=== PATIENT | male | born 1980 | race Caucasian/White ===

== ENCOUNTER 2022-02-21 21:01 | Emergency (ER) | payer OTHER, SELFPAY ==
--- NOTE | ~2022-02-21 | CT_ITS ---
EXAMINATION: CT brain wo con DATE: 02/21/2022 21:16 INDICATION: fall . TECHNIQUE: Computed tomography (CT) of the head was performed without intravenous contrast. The mA wa s adjusted according to patient size. Iterative reconstruction technique was employed. The dose-lengt h product was 1059.33 mGy-cm. COMPARISON: None. FINDINGS: Motion artifact present which required repeat imaging. No acute intracranial hemorrhage or extra-axial fluid collection. No hydrocephalus, mass, or herniation. No acute ischemic infarct. Unremarkable dural venous sinus attenuation. No acute osseous abnormality. Left frontal swelling and laceration. Right maxillary mucosal thickening, the remaining aerated spaces are clear. IMPRESSION: No acute intracranial process. Reviewed, dictated and finalized at location K. ING SUPERVISOR
--- NOTE | ~2022-02-21 | CT_ITS ---
EXAMINATION: CT facial & cervical spine wo DATE: 02/21/2022 21:19 INDICATION: fall TECHNIQUE: Computed tomography (CT) of the maxillofacial region and cervical spine was performed with out intravenous contrast. Automated exposure control and iterative reconstruction technique were empl oyed. The dose-length product was 558.43 mGy-cm. COMPARISON: CT brain, same date FINDINGS: CERVICAL: Vertebral Body Alignment: Intact. Craniocervical and atlantoaxial alignment: Moderate degenerative change. Alignment intact. Osseous structures/fracture: No evidence of a lytic or blastic process in the visualized spine. No e vidence of acute fracture. Cervical soft tissues: The paraspinal soft tissues planes are maintained. Degenerative changes: Moderate degenerative disc disease at C5-6. Severe right neural foraminal narro wing at C5-6. No severe central canal narrowing. FACE: Soft Tissues: Left frontal soft tissue swelling and laceration. Facial bones: Mild flattening of the anterior nasal bones. Otherwise, no acute fracture. No lytic or blastic process. Eyes: The globes are intact. The soft tissue planes of the orbits are maintained. Paranasal Sinuses: Mild inferior frontal and anterior ethmoid mucosal thickening. Moderate mucosal t hickening in the right maxillary sinus. Foreign Bodies: No radiopaque foreign bodies. Other Findings: Periapical lucency at the right first maxillary molar, which may be in communication with the right maxillary sinus. IMPRESSION: No acute fracture or traumatic malalignment in the cervical spine. Mild flattening of the anterior na denis bones which may represent acute or chronic fracture. Right maxillary periodontal disease, with po ssible right maxillary sinus involvement. Consider dental referral. Reviewed, dictated and finalized at location K. CE ASSISTANT IMPRESSION: No acute fracture or traumatic malalignment in the cervical spine. Mild flatten ing of the anterior nasal bones which may represent acute or chronic fracture. Right maxillary periodontal disease, with possible right maxillary sinus involv ement. Consider dental referral.
[2022-02-21 20:54] VITALS: BP 161/104; PULSE 81; RESP 16; TEMP 37.3; O2SAT 99
--- NOTE | 2022-02-21 21:01 | ED.WOUNDLAC ---
HPI - Wound/Laceration General Chief Complaint: Wound/Laceration Stated Complaint: LEFT EYE LAC, ETOH+ Source: patient and EMS Mode of arrival: EMS Limitations: no limitations History of Present Illness HPI narrative: 42 years old white male brought to the emergency room from home by ambulance because of a fall with laceration of left eyebrow Prior to arrival. Patient's told the EMT that patient been drinking all day long 4 days, and somehow lost his balance and fell, hit the edge of a wall then fell to the ground. Patient was mumbling, probably because of alcohol intoxication or probably because of the fall. Patient's is not sure. Patient is awake, alert and oriented x4, asymptomatic Related Data Allergies Allergy/AdvReac Type Severity Reaction Status Date / Time No Known Allergies Allergy Verified 02/21/22 21:05 Review of Systems Review of Systems: All systems reviewed & are unremarkable except as noted in HPI and below Exam Narrative: General appearance: Well-developed, well-nourished Skin: Normal color, 3 centimeter laceration left eyebrow, subcutaneous, patient is able to contract and relax the frontalis muscle without any abnormality Head: Normocephalic, nontraumatic Eyes: Clear conjunctiva ENT: Oropharynx normal, ears normal, nose normal Neck: Supple, nontender Chest and respiratory: Airway patent, no respiratory distress, no accessory muscle use Heart: Regular rate/rhythm Abdomen: Soft, nontender, no organomegaly, quiet bowel sounds Vascular: Normal peripheral pulses, normal capillary refill. Musculoskeletal: Normal range of motion, nontender back Neurologic: Alert and oriented ?3, FORM LAYER is normal as tested, no gross motor deficit Course Vital Signs Vital signs: Vital Signs Temperature 37.3 C 02/21/22 20:54 Pulse Rate 81 02/21/22 20:54 Respiratory Rate 16 02/21/22 20:54 Blood Pressure 161/104 H 02/21/22 20:54 Pulse Oximetry 99 02/21/22 20:54 Oxygen Delivery Room Air 02/21/22 20:54 Temperature 37.3 C 02/21/22 20:54 Pulse Rate 81 02/21/22 20:54 Respiratory Rate 16 02/21/22 20:54 Blood Pressure 161/104 H 02/21/22 20:54 Pulse Oximetry 99 02/21/22 20:54 Oxygen Delivery Room Air 01/16/23 20:54 MDM - Wound/Laceration MDM Narrative Medical decision making narrative: Patient is 42 years old white male came to the emergency room by ambulance from home after a fall against the edge of a wall at home causing laceration of left eyebrow. Patient is intoxicated. On arrival to the ED, patient is awake, alert and oriented x4, Physical examination showed no significant abnormality except left eyebrow laceration, subcutaneous, patient was able to contract and relax his frontalis muscle without any abnormality. Labs, alcohol level, CT head, cervical spine and facial bones ordered. Blood work-up showed alcohol level of 365. CT scan of the head, facial bones and cervical spine showed No acute fracture or traumatic malalignment in the cervical spine, mild flattening of the anterior nasal bones which may represent acute or chronic fracture. Right maxillary peridental disease with possible right maxillary sinus involvement. Physical examination showed no abnormality on the right side of the face. The above findings is chronic and patient needs to follow-up with a dentist for further evaluation and management. Laceration was repaired by Maureen/our physician academic affairs assistant. The pt was discharged to home.the pt,s condition upon discharge was fair,education was provided to the pt in reference to the final impression,discharge study results,treatment,prognosis and need for follow up . Lab Data 02/21/22 21:28
--- NOTE | 2022-02-21 21:11 | PC.NURSE ---
Pt to Ct via stretcher
[2022-02-21] MEDS: SODIUM CHLORIDE 0.9% IV 1,000 ML 999 ML IV CONT (21:27)
[2022-02-21] MEDS: TETANUS,DIPHTHERIA,AC PERTUSSIS ADULT (0.5 ML) BOOSTRIX IM (21:31)
[2022-02-21 21:33] LABS: Basophils Absolute Auto 0.1 K/mm3 (0.0-0.1); Basophils Percent Auto 1.1 % (0.2-1.2); Eosinophils Absolute Auto 0.2 K/mm3 (0-0.3); Eosinophils Percent Auto 2.8 % (0-4.4); Hemoglobin 17.1 g/dL (14.0-18.0); Immature Granulocyte Absolute 0.02 K/mm3 (0.00-0.031); Immature Granulocyte Percent A 0.3 % (0-0.5); Lymphocytes Absolute Auto 2.73 K/mm3 (0.9-3.2); Lymphocytes Percent Auto 38.6 % (18.3-44.2); Mean Corpuscular HGB Conc 34.9 g/dl (32-36); Mean Corpuscular Hemoglobin 34.3 pg (26-34); Mean Corpuscular Volume 98.2 fl (80-100); Mean Platelet Volume 8.8 fl (7.4-10.4); Monocytes Absolute Auto 0.5 K/mm3 (0.1-0.6); Monocytes Percent Auto 7.5 % (2.6-8.5); Neutrophils Absolute Auto 3.5 K/mm3 (1.3-6.7); Neutrophils Percent Auto 49.7 % (45.5-73.1); Platelet Count Result 229 k/mm3 (150-375); Red Blood Count 4.99 M/mm3 (4.6-6.20); Red Cell Distribution Width 11.9 % (11.5-14.5); White Blood Count 7.1 K/mm3 (4.5-10.0)
[2022-02-21 21:44] LABS: Prothrombin Time 12.8 Seconds (11.1-14.7)
[2022-02-21 21:48] LABS: Alanine Aminotransferase 26 U/L (6-50); Albumin Level 4.8 g/dL (3.5-5.1); Alkaline Phosphatase 55 U/L (38-126); Anion Gap 11 mmol/L (8-16); Aspartate Amino Transferase 41 U/L (17-59); Bilirubin,Total 0.5 mg/dL (0.2-1.3); Blood Urea Nitrogen 11 mg/dL (9-20); Calcium 8.2 mg/dL (8.4-10.2); Carbon Dioxide 26 mmol/L (22-30); Chloride 105 mmol/L (98-107); Estimated CRCL calculation 90 ml/min; Estimated Glomerular Filt Rate > 60; Glucose 137 mg/dL (65-110); Potassium 3.9 mmol/L (3.4-5.0); Sodium 142 mmol/L (137-145)
[2022-02-21 22:06] LABS: Ethanol 365 mg/dL (<10)
[2022-02-21] MEDS: CEPHALEXIN 500 MG CAPSULE PO (22:57)
== END 2022-02-21 23:09 | disposition home or self-care (01) ==
PROVIDERS: Emergency Provider Emergency Medicine
DX: S01.112A Laceration without foreign body of left eyelid and periocular area, initial encounter (principal); Z23 Encounter for immunization; K05.6 Periodontal disease, unspecified; F10.129 Alcohol abuse with intoxication, unspecified; Y90.8 Blood alcohol level of 240 mg/100 ml or more; W18.09XA Striking against other object with subsequent fall, initial encounter
CPT/HCPCS: 12013; 36415; 70450; 70486; 72125; 80053; 80307; 85025; 85610; 90471; 90715; 96360; 99284; A9270; J7030

== ENCOUNTER 2024-01-22 12:39 | Emergency (ER) | payer OTHER, SELFPAY ==
[2024-01-22 12:40] VITALS: BP 162/103; PULSE 97; RESP 16; TEMP 37.7; O2SAT 99
--- NOTE | 2024-01-22 13:22 | PC.NURSE ---
Pt explains recent divorce, placed on escitalopram for the past two months which he states has been helping a little. Denies hx of SI/HI or psych tx. Pt reports what he describes as paranoia, concern for his life from family members. Pt denies SI/HI currently.
[2024-01-22 14:07] LABS: Add Urine Microscopic? YES; Appearance Urine Clear (Clear); Bacteria Urine None Seen /hpf; Bilirubin Urine Negative (Negative); Blood Urine Negative (Negative); Color Urine Dark Yellow (Yellow); Glucose Urine UA Negative (Negative); Ketones Urine 1+ mg/dL (Negative); Leukocyte Esterase Ur Negative LEU/UL (Negative); Nitrate Urine Negative (Negative); Protein Urine Trace mg/dL (Negative); RBC Urine 0-2 /hpf (0-2); Specific Grav Ur 1.021 (1.001-1.035); Squamous Epithelial Cell Urine None Seen /hpf (Few); WBC Urine 0-5 /hpf (0-3); pH Urine 5.5 (5.0-9.0)
[2024-01-22 14:19] LABS: Amphetamine Screen Urine Negative (Negative); Barbiturate Screen Urine Negative (Negative); Benzodiazepines Screen Urine Negative (Negative); Cannabinoid Screen Urine Positive (Negative); Cocaine Screen Urine Negative (Negative); Methadone Screen Urine Negative (Negative); Opiate Screen Urine Negative (Negative); Phencyclidine Screen Urine Negative (Negative)
[2024-01-22 14:34] LABS: Basophils Absolute Auto 0.1 K/mm3 (0.0-0.1); Basophils Percent Auto 0.7 % (0.2-1.2); Eosinophils Absolute Auto 0.1 K/mm3 (0-0.3); Eosinophils Percent Auto 1.7 % (0-4.4); Hematocrit 47.2 % (42.0-52.0); Immature Granulocyte Absolute 0.02 K/mm3 (0.00-0.031); Immature Granulocyte Percent A 0.3 % (0-0.5); Lymphocytes Percent Auto 23.7 % (18.3-44.2); Mean Corpuscular Hemoglobin 33.1 pg (26-34); Mean Platelet Volume 8.9 fl (7.4-10.4); Monocytes Absolute Auto 0.8 K/mm3 (0.1-0.6); Monocytes Percent Auto 10.4 % (2.6-8.5); Neutrophils Absolute Auto 4.8 K/mm3 (1.3-6.7); Neutrophils Percent Auto 63.2 % (45.5-73.1); Platelet Count Result 231 k/mm3 (150-375); Red Blood Count 5.13 M/mm3 (4.6-6.20); Red Cell Distribution Width 11.8 % (11.5-14.5); White Blood Count 7.6 K/mm3 (4.5-10.0)
[2024-01-22 14:45] LABS: Alanine Aminotransferase 24 U/L (6-50); Albumin Level 5.2 g/dL (3.5-5.1); Alkaline Phosphatase 46 U/L (38-126); Anion Gap 6 mmol/L (4-12); Aspartate Amino Transferase 38 U/L (17-59); Bilirubin,Total 2.3 mg/dL (0.2-1.3); Blood Urea Nitrogen 9 mg/dL (9-20); Calcium 9.3 mg/dL (8.4-10.2); Carbon Dioxide 30 mmol/L (22-30); Chloride 102 mmol/L (98-107); Estimated CRCL calculation 104 ml/min; Estimated Glomerular Filt Rate > 60; Glucose 97 mg/dL (65-110); Potassium 3.8 mmol/L (3.4-5.0); Sodium 138 mmol/L (137-145)
[2024-01-22 14:48] LABS: Ethanol < 10 mg/dL (<10)
[2024-01-22 15:10] LABS: SARS-CoV-2 RNA PCR Negative (Negative)
[2024-01-22 15:36] LABS: Thyroid Stimulating Hormone Reflex 0.963 uIU/mL (0.465-4.68)
--- NOTE | 2024-01-22 17:01 | ED.PSYCH ---
HPI - Psych General Chief Complaint: Psychiatric Symptoms Stated Complaint: psych evaluation, paranoia, S/I Time Seen by Provider: 01/22/24 13:18 History of Present Illness HPI Narrative: Patient is a 44-year-old male who presents ER with increased paranoia a a and possible suicidal ideation. Patient last night called please to his house because he reports my is hacking his phone. He has lost his phone contacts. He also had a backup text message scheduled to be sent that accidentally got sent. Daughter present. The text stated ?it is important and perhaps my last words. You guys get half my pension. I love you also much, and I am sorry. Patient is going through stressors from a recent divorce. No previous history of psychosis. Denies drug or alcohol use. Patient also reports that he is confronted family about things that occurred between a family member and his . Patient is evasive in vague when speaking. Related Data Allergies Allergy/AdvReac Type Severity Reaction Status Date / Time No Known Allergies Allergy Verified 01/22/24 12:41 Review of Systems Review of Systems: All systems reviewed & are unremarkable except as noted in HPI and below Constitutional: Constitutional: Reports no additional constitutional complaints Cardiovascular: Cardiovascular: Reports no additional cardiovascular complaints Respiratory: Respiratory: Reports no additional respiratory complaints Musculoskeletal: Musculoskeletal: Reports no additional musculoskeletal complaints Integumentary/Breasts: Skin/Breast: Reports system reviewed and no additional complaints, except as docu Psychiatric: Psychiatric: Reports depression, Denies homicidal ideation and Reports suicidal ideation Comments: paranoia that he is being hacked PMFSH Past Medical History Medical History (Updated 01/22/24 @ 21:59 by Vinh Coley MD) Depression, major, single episode, moderate Essential (primary) hypertension Family History Family History (Updated 11/02/23 @ 06:12 by Leland Garcia MD) Mother Breast cancer Hypertension Sibling Hypertension Sibling Hypertension Social History Social History Smoking status: Never smoker Substance use type: marijuana Exam Narrative: GENERAL: Well-appearing, well-nourished, and in no acute distress. HEAD: Normocephalic, atraumatic. ENT: Mucous membranes moist. CHEST: Clear to auscultation. No respiratory distress. HEART: Regular rate and rhythm. Normal peripheral pulses. ABDOMEN: Soft, nontender, nondistended. EXTREMITIES: Normal range of motion. No edema. SKIN: Warm, dry, no rash. NEURO: Alert and oriented x3. PSYCH: Seems paranoid and invades drip questions. Reports broad statements of suicidal ideation the past denies specific plan. Course Course Emergency Course: 1709: Patient is medically cleared for inpatient psychiatric hospitalization. Crisis has been up see the patient. I do think that he has some paranoia and after interacting with his daughter it appears he has made statements consistent with suicidal ideation through text message. Recommend involuntary admission. 2157: Patient has a bed, awaiting transport in the morning. CARROL to Dr. Harris. Vital Signs Vital signs: Vital Signs Temperature 99.9 F H 01/22/24 12:40 Pulse Rate 97 01/22/24 12:40 Respiratory Rate 16 01/22/24 12:40 Blood Pressure 162/103 H 01/22/24 12:40 Pulse Oximetry 99 01/22/24 12:40 Oxygen Delivery Room Air 01/22/24 12:40 Temperature 98 F 01/22/24 18:10 Pulse Rate 75 01/22/24 18:10 Respiratory Rate 18 01/22/24 18:10 Blood Pressure 170/103 H 01/22/24 18:10 Pulse Oximetry 100 01/22/24 18:10 Oxygen Delivery Room Air 01/22/24 12:40 MDM - Psych Lab Data 01/22/24 14:25 01/22/24 14:25 Labs: Lab Results 01/22/24 01/22/24 Range/Units 13:49 14:25 WBC 7.6 (4.5-10.0) K/mm3 RBC 5.13 (4.6-6.20) M/mm3 Hgb 17.0 (14.0-18.0) g/dL Hct 47.2 (42.0-52.0) % MCV 92.0 (80-100) fl MCH 33.1 (26-34) pg MCHC 36.0 (32-36) g/dl RDW 11.8 (11.5-14.5) % Plt Count 231 (150-375) k/mm3 MPV 8.9 (7.4-10.4) fl Immature Gran % (Auto) 0.3 (0-0.5) % Neut % (Auto) 63.2 (45.5-73.1) % Lymph % (Auto) 23.7 (18.3-44.2) % [place] % (Auto) 10.4 H (2.6-8.5) % Eos % (Auto) 1.7 (0-4.4) % Baso % (Auto) 0.7 (0.2-1.2) % Lymph # (Auto) 1.80 (0.9-3.2) K/mm3 [place] # (Auto) 0.8 H (0.1-0.6) K/mm3 Eos # (Auto) 0.1 (0-0.3) K/mm3 Baso # (Auto) 0.1 (0.0-0.1) K/mm3 Abs Immat Gran (auto) 0.02 (0.00-0.031) K/mm3 Absolute Neuts (auto) 4.8 (1.3-6.7) K/mm3 Absolute Nucleated RBC 0.000 (0.0-0.012) K/mm3 Nucleated RBC % 0.0 (0.0-0.2) % Sodium 138 (137-145) mmol/L Potassium 3.8 (3.4-5.0) mmol/L Chloride 102 (98-107) mmol/L Carbon Dioxide 30 (22-30) mmol/L Anion Gap 6 (4-12) mmol/L BUN 9 (9-20) mg/dL Creatinine 0.90 (0.7-1.3) mg/dL Estim Creat Clear Calc 104 ml/min Estimated GFR > 60 (59 - ) Glucose 97 (65-110) mg/dL Calcium 9.3 (8.4-10.2) mg/dL Total Bilirubin 2.3 H (0.2-1.3) mg/dL AST 38 (17-59) U/L ALT 24 (6-50) U/L Alkaline Phosphatase 46 (38-126) U/L Total Protein 9.0 H (6.3-8.2) g/dL Albumin 5.2 H (3.5-5.1) g/dL TSH (Reflex) 0.963 (0.465-4.68) uIU/mL Urine Color Dark yellow (Yellow) Urine Appearance Clear (Clear) Urine pH 5.5 (5.0-9.0) Ur Specific [place] 1.021 (1.001-1.035) Urine Protein Trace (Negative) mg/dL Urine Glucose (UA) Negative (Negative) mg/dL Urine Ketones 1+ H (Negative) mg/dL Ur Blood (Man) Negative (Negative) Urine Nitrate Negative (Negative) Urine Bilirubin Negative (Negative) Urine Urobilinogen 1.0 (<2.0) mg/dL Leukocyte Esterase Rfl Negative (Negative) ANDRÉS/UL Urine RBC 0-2 (0-2) /hpf Urine WBC 0-5 (0-3) /hpf Ur Squamous Epith Cells None seen (Few) /hpf Urine Bacteria None seen /hpf Urine Casts 3-5 Urine Opiates Screen Negative (Negative) Urine Methadone Screen Negative (Negative) Ur Barbiturates Screen Negative (Negative) Ur Phencyclidine Scrn Negative (Negative) Ur Amphetamine Screen Negative (Negative) U Benzodiazepines Scrn Negative (Negative) Urine Cocaine Screen Negative (Negative) U Cannabinoids Screen Positive A (Negative) Ethyl Alcohol < 10 (<10) mg/dL SARS-CoV-2 RNA (RT-PCR) Negative (Negative) Discharge Plan Discharge Clinical Impression: Paranoia, Suicidal behavior Patient Disposition: Psychiatric Hosp Condition: Stable Patient Language: Bruneian Prescriptions: No Action escitalopram oxalate 10 mg tablet See Rx Instructions .ROUTE .COMPLEX Qty: 30 2RF Dose Instruction: Take 1 tablet by mouth once daily Rx Instructions: Take 1 tablet by mouth once daily Follow-up/Referrals: Leland Garcia MD [Primary Care Provider] -
--- NOTE | 2024-01-22 17:45 | PC.NURSE ---
Paula with Crisis called stating the hospitals that were faxed did not receive any lab work or home meds. She requests to resend the information to [facility] at [phone]. Information faxed.
--- NOTE | 2024-01-22 17:46 | PC.NURSE ---
Travon at [facility] called for report. He also states he did not receive lab work. Chart re-faxed to [facility] @ [phone]. He states he will call back after communicating with the psych doctors.
[2024-01-22 18:10] VITALS: BP 170/103; PULSE 75; RESP 18; TEMP 36.6; O2SAT 100
--- NOTE | 2024-01-22 18:19 | PC.NURSE ---
Travon at [facility] called to update pt is accepted by Dr. Oleary, going to the 1st floor.
--- NOTE | 2024-01-22 20:42 | PC.NURSE ---
Paula from [facility] updated that pt has bed at [facility]. Transport to arrive at 0900 on 01/22.
[2024-01-23 08:53] VITALS: BP 142/86; PULSE 78; RESP 16; TEMP 36.6; O2SAT 100
== END 2024-01-23 09:07 ==
PROVIDERS: Emergency Medicine; Emergency Provider Emergency Medicine; PCP Family Medicine Adolescent Medicine
DX: F22 Delusional disorders (principal); R45.851 Suicidal ideations; Z11.52 Encounter for screening for COVID-19; I10 Essential (primary) hypertension
CPT/HCPCS: 36415; 80053; 80307; 81001; 82077; 84443; 85025; 87635; 99285